=== PATIENT | female | born 1935 | race African-American/Black ===

== ENCOUNTER 2020-07-18 07:07 | Emergency (ER) | payer MEDICARE ==
[~2020-07-18] VITALS: Ht 160 cm; Wt 60.0 kg
[2020-07-18 08:08] VITALS: BP 168/90
[2020-07-18] MEDS ORDERED: T3 PO (08:13)
[2020-07-18] MEDS ORDERED: IBUP-2028 MT (08:14)
[2020-07-18] MEDS ORDERED: ACETAMINOPHEN 325MG TABLET PO ONE (08:15)
[2020-07-18] MEDS ORDERED: KETOROLAC 60MG/2ML VIAL IM ONE (08:15)
== END 2020-07-18 08:35 | disposition home or self-care (01) ==
LOC: ER 07:26
DX: M54.5 Low back pain (principal); I10 Essential (primary) hypertension
CPT/HCPCS: 96372; 99283; J1885

== ENCOUNTER 2020-10-07 17:02 | Emergency (ER) | payer MEDICARE ==
[~2020-10-07] VITALS: Ht 157.5 cm; Wt 69.0 kg
[~2020-10-07 17:02] MED LIST: IBUP-2028 MT; T3 PO
[2020-10-07] MEDS ORDERED: ONDANSETRON HCL 4MG/2ML INJ IV STA (17:47)
[2020-10-07] MEDS ORDERED: MECLIZINE 25MG TABLET PO ONE (18:00)
[2020-10-07] MEDS ORDERED: SODIUM CHLORIDE 0.9% 1,000 ML IV ONE (18:00)
[2020-10-07 18:43] LABS: BASOPHILS % 0.7 % (0.0-2.0); HEMATOCRIT. 41.9 % (36.0-48.0); HEMOGLOBIN. 13.7 g/dL (12.0-16.0); LYMPHOCYTES % 33.3 % (20.0-50.0); MEAN CORPUSCULAR HEMOGLOBIN 29.5 pg (28.0-32.0); MEAN CORPUSCULAR VOLUME 90.1 fL (81.0-99.0); MEAN PLATELET VOLUME 10.1 fl (7.4-10.4); MONOCYTES % 8.7 % (2.0-8.0); NEUTROPHILS % 56.3 % (40.0-76.0); PLATELET 234 x1000/uL (130-400); RED BLOOD CELL COUNT 4.65 mill/uL (4.2-5.4); RED CELL DISTRIBUTION WIDTH 14.4 % (11.6-14.6)
[2020-10-07 18:46] LABS: CHLORIDE 103 mEq/L (98-107)
[2020-10-07 18:48] LABS: PROTHROMBIN TIME 10.8 sec (9.6-11.0)
[2020-10-07 19:47] VITALS: BP 133/70
[2020-10-07] MEDS ORDERED: MECL-159 MT (20:25)
== END 2020-10-07 20:35 | disposition home or self-care (01) ==
LOC: ER 17:47
DX: R42 Dizziness and giddiness (principal); E11.9 Type 2 diabetes mellitus without complications; I10 Essential (primary) hypertension
CPT/HCPCS: 36415; 70450; 71045; 80053; 82962; 85025; 85610; 93005; 96361; 96374; 99285; J2405; J7030; J8597

== ENCOUNTER 2021-06-26 09:38 | Emergency (ER) | payer MEDICARE, MEDICAID ==
[~2021-06-26 09:38] MED LIST changes: +MECL-159 MT
== END 2021-06-26 10:45 | disposition left against medical advice (07) ==
LOC: ER 09:38
DX: Z53.21 Procedure and treatment not carried out due to patient leaving prior to being seen by health care provider (principal)

== ENCOUNTER 2023-12-09 21:08 | Inpatient (IN) | payer MEDICARE, MEDICAID ==
[~2023-12-09] VITALS: Ht 154.9 cm; Wt 70.8 kg
[~2023-12-09 21:08] MED LIST changes: -MECL-159 MT; +MECL-299 MT
[2023-12-09] MEDS ORDERED: MECLIZINE 25MG TABLET PO ONE (22:00)
[2023-12-09] MEDS: MECLIZINE 12.5MG TABLET PO NR (23:49)
[2023-12-10 00:09] LABS: BASOPHILS % 0.5 % (0.0-2.0); EOSINOPHILS % 0.4 % (0.0-5.0); HEMATOCRIT. 36.5 % (36.0-48.0); HEMOGLOBIN. 12.1 g/dL (12.0-16.0); LYMPHOCYTES % 14.3 % (20.0-50.0); MEAN CORPUSCULAR HEMOGLOBIN 29.5 pg (28.0-32.0); MEAN CORPUSCULAR VOLUME 89.4 fL (81.0-99.0); MEAN PLATELET VOLUME 9.5 fl (7.4-10.4); NEUTROPHILS % 77.8 % (40.0-76.0); PLATELET 194 x1000/uL (130-400); RED BLOOD CELL COUNT 4.09 mill/uL (4.2-5.4); RED CELL DISTRIBUTION WIDTH 14.8 % (11.6-14.6); WHITE BLOOD COUNT 7.1 x1000/uL (4.5-11.0)
[2023-12-10 00:15] LABS: CHLORIDE 106 mEq/L (98-107); POTASSIUM 3.6 mEq/L (3.5-5.1); SODIUM 139 mEq/L (136-145)
[2023-12-10 00:16] LABS: CARBON DIOXIDE 27 mEq/L (21-32)
[2023-12-10 00:17] LABS: CALCIUM 10.1 mg/dL (8.7-10.4)
[2023-12-10 00:19] LABS: INR 0.9; PROTHROMBIN TIME 10.5 sec (9.6-11.0)
[2023-12-10 00:21] LABS: GLUCOSE 148 mg/dL (70-105); UREA NITROGEN BLOOD 18 mg/dL (9-23)
[2023-12-10 00:22] LABS: TROPONIN I HIGH SENSITIVITY 15 ng/L (3.0-34)
[2023-12-10] MEDS: ASPIRIN 325MG EC TABLET PO NR (01:00)
[2023-12-10 02:28] LABS: TROPONIN I HIGH SENSITIVITY 20 ng/L (3.0-34)
[2023-12-10] MEDS ORDERED: DEXTROSE 50% WATER 50ML SYRINGE IV PRN (11:15)
[2023-12-10] MEDS ORDERED: IPRATROPIUM/ALBUTEROL 0.5-3(2.5)MG/3ML NEB HHN PRN (11:15)
[2023-12-10] MEDS ORDERED: ONDANSETRON HCL 4MG/2ML INJ IV PRN (11:15)
[2023-12-10] MEDS: AMLODIPINE 5MG TABLET PO SCH (11:15)
[2023-12-10] MEDS ORDERED: CLONIDINE 0.1MG TABLET PO PRN (11:15)
[2023-12-10] MEDS ORDERED: ACETAMINOPHEN 325MG TABLET PO PRN ×2 (11:15)
[2023-12-10] MEDS: BLOOD SUGAR DIAGNOSTIC STRIP TEST SCH (11:54)
[2023-12-10] MEDS: INSULIN LISPRO 100 UNITS/ML SUBCUT SCH (12:15)
[2023-12-10 13:15] LABS: BASOPHILS % 0.6 % (0.0-2.0); HEMATOCRIT. 39.6 % (36.0-48.0); HEMOGLOBIN. 12.6 g/dL (12.0-16.0); LYMPHOCYTES % 26.9 % (20.0-50.0); MEAN CORPUSCULAR HEMOGLOBIN 28.6 pg (28.0-32.0); MEAN CORPUSCULAR HGB CONC 31.9 g/dL (31.0-37.0); MEAN CORPUSCULAR VOLUME 89.5 fL (81.0-99.0); MEAN PLATELET VOLUME 9.9 fl (7.4-10.4); MONOCYTES % 11.2 % (2.0-8.0); NEUTROPHILS % 60.3 % (40.0-76.0); PLATELET 204 x1000/uL (130-400); RED BLOOD CELL COUNT 4.42 mill/uL (4.2-5.4); RED CELL DISTRIBUTION WIDTH 14.7 % (11.6-14.6)
[2023-12-10] MEDS ORDERED: KETOROLAC 30MG/ML VIAL IV PRN (13:15)
[2023-12-10 13:16] LABS: CHLORIDE 107 mEq/L (98-107); POTASSIUM 3.5 mEq/L (3.5-5.1); SODIUM 140 mEq/L (136-145)
[2023-12-10 13:17] LABS: CALCIUM 9.6 mg/dL (8.7-10.4); CARBON DIOXIDE 26 mEq/L (21-32)
[2023-12-10 13:22] LABS: CREATININE 0.8 mg/dL (0.6-1.0); GLUCOSE 100 mg/dL (70-105); TRIGLYCERIDE 72 mg/dL (0-150); UREA NITROGEN BLOOD 11 mg/dL (9-23)
[2023-12-10 13:23] LABS: LDL CHOLESTEROL 140 mg/dL (5-100)
[2023-12-10 13:24] LABS: CHOLESTEROL 204 mg/dL (<200); HDL CHOLESTEROL 53 mg/dL (>65)
[2023-12-10] MEDS ORDERED: NALOXONE HCL 0.4MG/ML VIAL IV PRN (14:30)
[2023-12-10] MEDS ORDERED: CYCL5TAB MT (15:39)
[2023-12-10] MEDS ORDERED: DICL100G58 TP (15:39)
[2023-12-10] MEDS ORDERED: ATOR20TA MT (15:39)
[2023-12-10] MEDS ORDERED: AMLO-500 MT (15:39)
[2023-12-10] MEDS ORDERED: TRAM50TA3 MT (15:39)
[2023-12-10 16:00] VITALS: BP 145/72; PULSE 80; RESP 18; TEMP 98.1
[2023-12-10] MEDS: KETOROLAC 15MG/ML VIAL IV PRN (16:17)
[2023-12-10] MEDS: MECLIZINE 25MG TABLET PO PRN (17:26)
[2023-12-10 19:33] LABS: CLARITY URINE CLEAR (CLEAR); COLOR URINE YELLOW (YELLOW); GLUCOSE URINE NEGATIVE (NEGATIVE); KETONES URINE NEGATIVE (NEGATIVE); LEUKOCYTE ESTERASE URINE TRACE (NEGATIVE); NITRITE URINE NEGATIVE (NEGATIVE); OCCULT BLOOD URINE NEGATIVE (NEGATIVE); PH URINE 7.5 (4.5-8.0); PROTEIN URINE NEGATIVE (NEGATIVE); SPECIFIC GRAVITY URINE 1.006 (1.005-1.030); UROBILINOGEN URINE 0.2 E.U./dL (0.2-1.0)
[2023-12-10 19:41] LABS: *AMPHETAMINES SCREEN URINE NEGATIVE (NEGATIVE); *BARBITURATES SCREEN URINE NEGATIVE (NEGATIVE); *BENZODIAZEPINES SCREEN URINE NEGATIVE (NEGATIVE); *COCAINE SCREEN URINE NEGATIVE (NEGATIVE); CANNABINOID URINE SCREEN NEGATIVE (NEGATIVE); ECSTASY MDMA SCREEN URINE NEGATIVE (NEGATIVE); METHADONE URINE SCREEN NEGATIVE (NEGATIVE); OPIATES URINE SCREEN NEGATIVE (NEGATIVE); PHENCYCLIDINE URINE SCREEN NEGATIVE (NEGATIVE)
[2023-12-10 19:43] LABS: BACTERIA URINE NONE SEEN; RBC URINE 0-2 /hpf (0-2); SQUAMOUS EPITHELIAL CELL URINE RARE /lpf (RARE/1+)
[2023-12-10] MEDS: HYDROCODONE/ACETAMINOPHEN 5/325MG TABLET PO PRN (19:44)
[2023-12-10] MEDS: DOCUSATE SODIUM 100MG CAPSULE PO PRN (19:45)
[2023-12-10 20:00] VITALS: BP 130/69; PULSE 78; RESP 18; TEMP 97.7
[2023-12-10] MEDS: ATORVASTATIN CALCIUM 40MG TABLET PO SCH (20:38)
[2023-12-10 21:34] LABS: HEPATITIS B SURFACE ANTIGEN NEGATIVE (Negative)
[2023-12-10 21:55] LABS: HEPATITIS C AB NON REACTIVE (Neg) (Negative)
[2023-12-11] VITALS: BP 101/68; PULSE 88; RESP 18; TEMP 97.5
[2023-12-11 04:00] VITALS: BP 105/55; PULSE 66; RESP 20; TEMP 97.5
[2023-12-11 06:05] LABS: CALCIUM 9.4 mg/dL (8.7-10.4)
[2023-12-11 06:10] LABS: CREATININE 1.1 mg/dL (0.6-1.0)
[2023-12-11 06:51] LABS: BASOPHILS % 0.6 % (0.0-2.0); EOSINOPHILS % 2.5 % (0.0-5.0); HEMOGLOBIN. 11.9 g/dL (12.0-16.0); LYMPHOCYTES % 38.4 % (20.0-50.0); MEAN CORPUSCULAR HEMOGLOBIN 28.7 pg (28.0-32.0); MEAN CORPUSCULAR VOLUME 89.6 fL (81.0-99.0); MEAN PLATELET VOLUME 10.3 fl (7.4-10.4); MONOCYTES % 10.3 % (2.0-8.0); NEUTROPHILS % 48.2 % (40.0-76.0); PLATELET 198 x1000/uL (130-400); RED BLOOD CELL COUNT 4.13 mill/uL (4.2-5.4); RED CELL DISTRIBUTION WIDTH 14.5 % (11.6-14.6); WHITE BLOOD COUNT 5.2 x1000/uL (4.5-11.0)
[2023-12-11 08:00] VITALS: BP 130/68; PULSE 72; RESP 20; TEMP 96.8
[2023-12-11] MEDS ORDERED: MECL-299 MT (10:48)
[2023-12-11] MEDS ORDERED: ASPI-1497 MT (10:48)
[2023-12-11] MEDS ORDERED: LIP40 MT (10:48)
[2023-12-11 12:00] VITALS: BP 108/55; PULSE 77; RESP 20; TEMP 98.4
[2023-12-11 12:03] VITALS: BP 130/68; PULSE 72; TEMP 98.6; O2SAT 100
== END 2023-12-11 13:00 | disposition home or self-care (01) | DRG 74 ==
LOC: ER 21:08 → 5WST 12-10 01:02 → EDBEDREQ 12-10 01:22 → 7WST 12-10 14:50
PROVIDERS: ADMIT Internal Medicine; ATTEND Internal Medicine
DX: G90.8 Other disorders of autonomic nervous system (principal); I10 Essential (primary) hypertension; E78.5 Hyperlipidemia, unspecified; E66.9 Obesity, unspecified; Z68.29 Body mass index [BMI] 29.0-29.9, adult; Z86.73 Personal history of transient ischemic attack (TIA), and cerebral infarction without residual deficits; W19.XXXA Unspecified fall, initial encounter; Y93.89 Activity, other specified; Y92.89 Other specified places as the place of occurrence of the external cause; Y99.8 Other external cause status; M94.0 Chondrocostal junction syndrome [Tietze]
CPT/HCPCS: 36415; 70551; 71045; 80048; 80061; 80305; 81003; 82962; 83036; 83880; 84484; 85025; 86705; 87340; 93005; 97162; 99285; J1885; J8597